=== PATIENT | female | born 1960 | race Caucasian/White ===

== ENCOUNTER 2018-12-01 05:51 | Day surgery (SDC) | payer BC ==
[2018-11-30 11:25] VITALS: BMI 22.1
[2018-12-01] MEDS ORDERED: Thrombin 5000 UNITS/5 ML VIAL ONE (06:22)
[2018-12-01] MEDS ORDERED: Bupivacaine HCl 0.5%/Epinephrine 1:200,000/PF 30 ml Vial ONE (06:22)
[2018-12-01] MEDS ORDERED: Fentanyl 100 MCG/2 ML VIAL ONE ×2 (06:32→08:22)
[2018-12-01] MEDS ORDERED: Scopolamine 1.5 mg/72 hour Patch ONE (06:53)
[2018-12-01] MEDS ORDERED: Lidocaine 2% PF 5 ML VIAL ONE (09:21)
[2018-12-01] MEDS ORDERED: Rocuronium Bromide 10 MG/ML (10ML VIAL) ONE (09:21)
[2018-12-01] MEDS ORDERED: Ondansetron PF 4 MG/2 ML Vial ONE (09:21)
[2018-12-01] MEDS ORDERED: Dexamethasone 20 MG/5 ML VIAL ONE (09:21)
[2018-12-01] MEDS ORDERED: Ketorolac Tromethamine 30 MG/ML VIAL ONE (09:21)
[2018-12-01] MEDS ORDERED: PROPOFOL 200 MG/20 ML VIAL ONE (09:21)
[2018-12-01] MEDS ORDERED: diphenhydrAMINE 50 MG/ML VIAL ONE (09:21)
[2018-12-01] MEDS ORDERED: Glycopyrrolate 0.2 MG/ML 5 ML SYRINGE ONE (09:21)
--- NOTE | 2018-12-01 10:28 | OP ---
DATE OF PROCEDURE: 12/01/2018 CLERICAL METHODS ANALYST: Pablo Coulter PA-C INDICATION: Pain and prevent neurologic decline. DIAGNOSIS: Footdrop with associated lumbar radiculopathy manifest as pain and numbness in addition to weakness. PROCEDURES PERFORMED: Right L4-L5 hemilaminectomy, medial facetectomy, and decompression. ANESTHESIA: General. DESCRIPTION OF PROCEDURE: The patient was brought into the operating room and placed under general anesthesia. She was flipped from the supine to prone position. A linear incision was planned over the L4-L5 segment. After prepping and draping and after an appropriate preoperative pause, the incision was created. The soft tissues were swept right of midline. Self-retaining retractors were placed in the wound for optimal exposure. After confirming the appropriate level with C-arm fluoroscopy, high-speed cutting drill bit as well as 2, 3, and 4 mm Kerrisons were used to perform a laminectomy along the inferior aspect of L4 and the superior aspect of L5. The laminectomy was extended laterally to encompass the medial aspect of the facet joint. After decompressing the segment, the wound was irrigated. Hemostasis was maintained throughout. The wound was then closed in anatomic layers and a pressure dressing was applied. There were no known procedural complications. Job ID: [id number]
--- NOTE | 2018-12-01 11:11 | HP ---
HISTORY OF PRESENT ILLNESS: Ms. Cardenas is a 57-year-old woman who presents for evaluation of a few months worth of lower back pain as well as 6 to 8 weeks of right-sided footdrop. She has an MRI that reveals bilateral recess stenosis at L4-5 that fits this; although, she does not have the most presentation as she denies any of radicular sounding symptoms. PHYSICAL EXAMINATION: On examination, she is unable to heel walk and cannot dorsiflex past neutral with the right foot, 5-/5 strength in dorsiflexion on the right. PAST MEDICAL HISTORY: Significant for pain. MEDICATION LIST: Tramadol and Flexeril. ALLERGIES: NO KNOWN DRUG ALLERGIES. ASSESSMENT: Lumbar stenosis with right-sided footdrop. PLAN: Dr. Araujo met with the patient and he advocated for an L4-L5 decompression. He explained to the patient about the risks, benefits, and alternatives to the procedure. The patient expressed understanding and elected to move forward with surgery as discussed. I do believe the patient is mentally competent and capable of making medical decisions for herself. We will move forward with surgery as planned. Job ID: [id number]
== END 2018-12-01 12:00 | disposition home or self-care (01) ==
LOC: SDC 05:51
PROVIDERS: ATTEND Neurological Surgery
PROC: 01NB0ZZ Release Lumbar Nerve, Open Approach (ICD-10-PCS; principal; 2018-12-01)
DX: M48.061 Spinal stenosis, lumbar region without neurogenic claudication (principal); M54.16 Radiculopathy, lumbar region; M21.371 Foot drop, right foot; Z79.891 Long term (current) use of opiate analgesic
CPT/HCPCS: 76000; J0131; J0670; J0690; J1100; J1200; J1885; J2001; J2405; J2704; J3010